=== PATIENT | female | born 1970 | race Caucasian/White ===

== ENCOUNTER 2020-07-29 21:04 | Emergency (ER) | payer BC, OTHER ==
--- NOTE | 2020-07-29 21:44 | EDM.PDOC ---
ED HPI GENERAL MEDICAL PROBLEM - General Chief Complaint: Head Injury Stated Complaint: FELL ON ICE, HEAD BLEEDING Time Seen by Provider: 07/29/20 21:44 Source of Information: Reports: Patient, RN, RN Notes Reviewed History Limitations: Reports: No Limitations - History of Present Illness INITIAL COMMENTS - FREE TEXT/NARRATIVE: Patient is a 49-year-old female who presents to ER with complaints of slipping on the ice and hitting her head on the deck causing laceration and lump to the back of her head. Patient denies being knocked out. States she is unsure of her tetanus vaccination, will follow up with [facility] tomorrow. Patient states that she does not have a headache at this time. 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 ED EXAM, HEAD INJURY - Physical Exam Exam: See Below Exam Limited By: No Limitations General Appearance: Alert, WD/WN, No Apparent Distress Head: Normocephalic, Scalp Swelling (Occipital), Scalp Tenderness (Occipital) Nexus Criteria: No: Posterior, Midline Cervical Tenderness, Evidence of Intoxication, Altered Level of Consciousness, Focal Neurological Deficit, Painful Distraction Injuries Eyes: Bilateral Eye: EOMI, Normal Inspection Ears: Normal External Exam, Hearing Grossly Normal Nose: Normal Inspection Throat/Mouth: Normal Inspection, Normal Lips, Normal Teeth, Normal Gums, Normal Oropharynx, Normal Voice, No Airway Compromise Neck: Non-Tender, Full Range of Motion, Normal Alignment, Normal Inspection Respiratory: No Respiratory Distress, Lungs Clear, Normal Breath Sounds, No Accessory Muscle Use, Chest Non-Tender Cardiovascular: Normal Peripheral Pulses, Regular Rate, Rhythm, No Edema, No Gallop, No JVD, No Murmur, No Rub GI/Abdominal Exam: Normal Bowel Sounds, Soft, Non-Tender, No Organomegaly, No Distention, No Abnormal Bruit, No Mass (Female) Exam: Deferred Rectal (Female) Exam: Deferred Back Exam: Full Range of Motion, Normal Inspection, NT Extremities: Normal Inspection, Normal Range of Motion, Non-Tender, No Pedal Edema, Normal Capillary Refill Neurologic: hat model II-XII nml As Tested, No Motor/Sensory Deficits, Alert, Normal Mood/Affect, Oriented x 3 Skin: Normal Color, Warm/Dry, Other (1.5 cm laceration to the occipital portion of the head) - Rohan Coma Score Best Eye Response (Rohan): (4) Open Spontaneously Best Verbal Response (Rohan): (5) Oriented Best Motor Response (Rohan): (6) Obeys Commands Course - Vital Signs Last Recorded V/S: Last Vital Signs Temp 98.4 F 07/29/20 21:28 Pulse 79 07/29/20 21:51 Resp 16 07/29/20 21:28 BP 153/106 H 07/29/20 21:51 Pulse Ox 99 07/29/20 21:28 - Re-Assessments/Exams Free Text/Narrative Re-Assessment/Exam: 07/29/20 22:31 Patient has some hypertension upon arrival to the ER. States blood pressure is usually good. She does take propranolol, more for anxiety. States she took a propranolol this morning. Discussed having the patient take another propranolol tonight when she gets home. Departure - Departure Time of Disposition: 21:59 Disposition: Home, Self-Care 01 Condition: Good Clinical Impression: Laceration Fall Qualifiers: Encounter type: initial encounter Qualified Code(s): W19.XXXA - Unspecified fall, initial encounter Head injury Qualifiers: Encounter type: initial encounter Qualified Code(s): S09.90XA - Unspecified injury of head, initial encounter - Discharge Information *PRESCRIPTION DRUG MONITORING PROGRAM REVIEWED*: No *COPY OF PRESCRIPTION DRUG MONITORING REPORT IN PATIENT SHAI: No Instructions: Post-Concussion Syndrome, [id number], Facial or Scalp Contusion, [id number], Head Injury, Adult, [id number], Laceration Care, Adult, [id number], Sutures, [place], or Adhesive Wound Closure, [id number] Forms: ED Department Discharge Additional Instructions: Monitor for signs of concussion, vomiting, severe headache, uncontrollable crying, unable to arouse Return to the ER with any further problems have oscar removed in 7-10 days Sepsis Event Note (ED) - Evaluation Sepsis Screening Result: No Definite Risk - Focused Exam Vital Signs: Vital Signs Temp Pulse Resp BP Pulse Ox 07/29/20 21:51 79 153/106 H 07/29/20 21:47 171/112 H 07/29/20 21:28 98.4 F 85 16 172/112 H 99
== END 2020-07-29 22:10 | disposition home or self-care (01) ==
LOC: DL.ED 21:04
DX: S01.01XA Laceration without foreign body of scalp, initial encounter (principal); Z88.1 Allergy status to other antibiotic agents; Z88.8 Allergy status to other drugs, medicaments and biological substances; W01.198A Fall on same level from slipping, tripping and stumbling with subsequent striking against other object, initial encounter
CPT/HCPCS: 12001; 99282-25; 99283

== ENCOUNTER 2021-01-04 21:56 | Emergency (ER) | payer OTHER ==
--- NOTE | 2021-01-04 22:16 | EDM.PDOC ---
"ED HPI GENERAL MEDICAL PROBLEM - General Stated Complaint: LEFT SIDE RIB PAIN Time Seen by Provider: 01/04/21 22:00 Source of Information: Reports: Patient History Limitations: Reports: No Limitations - History of Present Illness INITIAL COMMENTS - FREE TEXT/NARRATIVE: This 50 yo female patient reports to the ED with left lateral rib pain and left upper quadrant abdominal pain. The patient reports her symptoms started earlier today and have been getting worse since symptom onset. The patient reports her pain initially started in her left lateral ribs, but has spread to her entire side. The patient reports increased pain with palpation of the ribs and lateral abdomen. Onset: Today Duration: Constant, Getting Worse Location: Reports: Chest (left lower lateral ), Abdomen (left lateral) Quality: Reports: Ache Severity: Moderate Improves with: Reports: None Worsens with: Reports: None Context: Reports: Other Associated Symptoms: Reports: No Other Symptoms - Related Data Allergies Allergy/AdvReac Type Severity Reaction Status Date / Time clindamycin AdvReac Unknown GI upset Verified 01/04/21 22:36 prednisone AdvReac Unknown GI upset Verified 01/04/21 22:36 Home Meds: Home Meds ALPRAZolam [Alprazolam] 0.25 mg PO DAILY PRN 01/10/18 [History] Propranolol HCl [Propranolol] 60 mg PO DAILY 07/29/20 [History] Past Medical History - Past Health History Medical/Surgical History: Denies Medical/Surgical History HEENT History: Reports: Impaired 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 ED ROS GENERAL - Review of Systems Review Of Systems: Comprehensive ROS is negative, except as noted in HPI. ED EXAM, GENERAL - Physical Exam Exam: See Below Exam Limited By: No Limitations General Appearance: Alert, WD/WN, Moderate Distress Eye Exam: Bilateral Eye: EOMI, Normal Inspection, PERRL Ears: Normal External Exam, Normal Canal, Hearing Grossly Normal, Normal TMs Nose: Normal Inspection Throat/Mouth: Normal Inspection, Normal Lips, Normal Teeth, Normal Gums, Normal Oropharynx, Normal Voice, No Airway Compromise Head: Atraumatic, Normocephalic Neck: Normal Inspection, Supple, Non-Tender, Full Range of Motion Respiratory/Chest: No Respiratory Distress, Lungs Clear, Normal Breath Sounds, No Accessory Muscle Use, Other (Tenderness to the left lateral ribs) Cardiovascular: Normal Peripheral Pulses, Regular Rate, Rhythm, No Edema, No Gallop, No JVD, No Murmur, No Rub GI/Abdominal: Normal Bowel Sounds, Soft, Tender (left lateral upper abdomen) (Female) Exam: Deferred Rectal (Female) Exam: Deferred Back Exam: Normal Inspection, Full Range of Motion, NT Extremities: Normal Inspection, Normal Range of Motion, Non-Tender, Normal Capillary Refill, No Pedal Edema Neurological: Alert, Oriented, CN II-XII Intact, Normal Cognition, Normal Gait, Normal Reflexes, No Motor/Sensory Deficits Psychiatric: Normal Affect, Normal Mood Skin Exam: Warm, Dry, Intact, Normal Color, No Rash Lymphatic: No Adenopathy Course - Vital Signs Last Recorded V/S: Last Vital Signs Temp 97.9 F 01/04/21 22:36 Pulse 102 H 01/04/21 22:36 Resp 16 01/04/21 22:36 BP 158/93 H 01/04/21 22:36 Pulse Ox 98 01/04/21 22:36 - Orders/Labs/Meds Orders: Active Orders 24 hr Category Date Time Status CULTURE URINE [RM] Stat Lab 01/04/21 22:38 Received Labs: Laboratory Tests 01/04/21 01/04/21 01/04/21 Range/Units 22:12 22:12 22:12 WBC 6.2 (5.0-10.0) 10^3/uL RBC 4.59 (4.2-5.4) 10^6/uL Hgb 15.3 D (12.0-16.0) g/dL Hct 43.0 (37.0-47.0) % MCV 93.7 D (80-100) fL MCH 33.3 (27.0-34.0) pg MCHC 35.6 H (33.0-35.0) g/dL Plt Count 239 D (150-450) 10^3/uL Neut % (Auto) 51.6 (42.2-75.2) % Lymph % (Auto) 38.4 (20.5-50.1) % Gonzales % (Auto) 7.0 (2-8) % Eos % (Auto) 1.9 (1.0-3.0) % Baso % (Auto) 1.1 H (0.0-1.0) % D-Dimer, Quantitative 405 H (0-400) ng/mL Sodium 135 L (136-145) mmol/L Potassium 3.5 (3.5-5.1) mmol/L Chloride 96 L (98-107) mmol/L Carbon Dioxide 26 (21-32) mmol/L Anion Gap 16.5 H (7-13) mEq/L BUN 7 (7-18) mg/dL Creatinine 0.60 (0.55-1.02) mg/dL Est Cr Clr Drug Dosing 96.91 mL/min Estimated GFR (MDRD) > 60 BUN/Creatinine Ratio 11.7 (No establ ref range) Glucose 106 H (70-99) mg/dL Calcium 9.0 (8.5-10.1) mg/dL Total Bilirubin 0.3 (0.2-1.0) mg/dL AST 84 H (15-37) U/L ALT 98 H (14-59) U/L Alkaline Phosphatase 53 (46-116) U/L Total Protein 8.0 (6.4-8.2) g/dL Albumin 4.3 (3.4-5.0) g/dL Globulin 3.7 Albumin/Globulin Ratio 1.2 Urine Color (YELLOW) Urine Appearance (CLEAR) Urine pH (5.0-9.0) Ur Specific [place] (1.005-1.030) Urine Protein (NEGATIVE) Urine Glucose (UA) (NEGATIVE) Urine Ketones (NEGATIVE) Urine Occult Blood (NEGATIVE) Urine Nitrite (NEGATIVE) Urine Bilirubin (NEGATIVE) Urine Urobilinogen (0.2-1.0) mg/dL Ur Leukocyte Esterase (NEGATIVE) Urine RBC /HPF Urine WBC (0-5/HPF) /HPF Ur Epithelial Cells (NOT SEEN) /HPF Amorphous Sediment (NOT SEEN) /HPF Urine Bacteria (0-FEW/HPF) /HPF Urine Mucus (NOT SEEN) /LPF 01/04/21 Range/Units 22:38 WBC (5.0-10.0) 10^3/uL RBC (4.2-5.4) 10^6/uL Hgb (12.0-16.0) g/dL Hct (37.0-47.0) % MCV (80-100) fL MCH (27.0-34.0) pg MCHC (33.0-35.0) g/dL Plt Count (150-450) 10^3/uL Neut % (Auto) (42.2-75.2) % Lymph % (Auto) (20.5-50.1) % Gonzales % (Auto) (2-8) % Eos % (Auto) (1.0-3.0) % Baso % (Auto) (0.0-1.0) % D-Dimer, Quantitative (0-400) ng/mL Sodium (136-145) mmol/L Potassium (3.5-5.1) mmol/L Chloride (98-107) mmol/L Carbon Dioxide (21-32) mmol/L Anion Gap (7-13) mEq/L BUN (7-18) mg/dL Creatinine (0.55-1.02) mg/dL Est Cr Clr Drug Dosing mL/min Estimated GFR (MDRD) BUN/Creatinine Ratio (No establ ref range) Glucose (70-99) mg/dL Calcium (8.5-10.1) mg/dL Total Bilirubin (0.2-1.0) mg/dL AST (15-37) U/L ALT (14-59) U/L Alkaline Phosphatase (46-116) U/L Total Protein (6.4-8.2) g/dL Albumin (3.4-5.0) g/dL Globulin Albumin/Globulin Ratio Urine Color Yellow (YELLOW) Urine Appearance Slightly cloudy (CLEAR) Urine pH 6.0 (5.0-9.0) Ur Specific [place] 1.010 (1.005-1.030) Urine Protein Negative (NEGATIVE) Urine Glucose (UA) Negative (NEGATIVE) Urine Ketones Negative (NEGATIVE) Urine Occult Blood Trace-intact H (NEGATIVE) Urine Nitrite Negative (NEGATIVE) Urine Bilirubin Negative (NEGATIVE) Urine Urobilinogen 0.2 (0.2-1.0) mg/dL Ur Leukocyte Esterase Small H (NEGATIVE) Urine RBC 5-10 H /HPF Urine WBC 50-75 H (0-5/HPF) /HPF Ur Epithelial Cells Few (NOT SEEN) /HPF Amorphous Sediment Rare (NOT SEEN) /HPF Urine Bacteria Moderate H (0-FEW/HPF) /HPF Urine Mucus Few H (NOT SEEN) /LPF - Radiology Interpretation Free Text/Narrative:: [facility] [place] [facility] Final Radiology Report Call: [phone] assistance Online chat: [email or web address] Name: OSVALDO ELAM Age: 50Years F Date: 01/04/2021 SSN: -- : [id number] Study: CT ABDOMEN PELVIS WO CONT Requesting Physician: Nghia Cote Images: [id number] Addl Studies: Provided Clinical History: Left side pain with hematuria Contrast: Without Contrast Medium: Contrast Amount: Contrast Method: Page 1 of 2 PROCEDURE INFORMATION: Exam: CT Abdomen And Pelvis Without Contrast Exam date and time: 01/04/2021 11:34 PM Age: 50 years old Clinical indication: Left side pain with hematuria TECHNIQUE: Imaging protocol: Computed tomography of the abdomen and pelvis without contrast. Coronal and sagittal reformatted images are submitted. Radiation optimization: All CT scans at this facility use at least one of these dose optimization techniques: automated exposure control; mA and/or kV adjustment per patient size (includes targeted exams where dose is matched to clinical indication); or iterative reconstructi on. COMPARISON: No prior study is available for comparison at the time of this interpretation. FINDINGS: The study is limited by the lack of IV contrast. Visualized portions of the thoracic base demonstrate an old burst fracture deformity of the T11 vertebral body, with an associated superior endplate Schmorl's node, but are otherwise unremarkable. There is surgical absence of the uterus. No urinary calculi or hans urinary tract obstruction on either side, but the urinary bladder is moderately distended and exhibits smoothly irregular margins, possibly neurogenic bladder, although nonspecific, with associated mild prominence of the ureters and renal pelves bilaterally. No intestinal obstruction, but there is mild left-sided mesenteric fat stranding, which is nonspecific but could be related to mild enteritis. There is diffuse hepatic steatosis. There is atrophy and subtotal fatty replacement of the inferior lumbar paraspinal musculature. There is bilateral L5 spondylolysis. The noncontrasted abdominal and pelvic organs, vascular and intestinal structures, osseous, muscular, and soft tissue structures are otherwise unremarkable. OSVALDO ELAM | Final Radiology Report CONFIDENTIALITY STATEMENT This report is intended only for use by the referring physician, and only in accordance with law. If you received this in error, call [phone]. Page 2 of 2 The appendix is normal. No abdominopelvic abscess, free fluid or air, soft tissue mass, or lymphadenopathy. IMPRESSION: --No urinary calculi or hans urinary tract obstruction on either side, but the urinary bladder is moderately distended and exhibits smoothly irregular margins, possibly neurogenic bladder, although nonspecific, with associated mild prominence of the ureters and renal pelves bilaterally. --No intestinal obstruction, but there is mild left-sided mesenteric fat stranding, which is nonspecific but could be related to mild enteritis. --Chronic findings are described above. Thank you for allowing us to participate in the care of your patient. Dictated and Authenticated by: Mook Paulino MD 01/05/2021 1:15 AM Central Time ([place] & [place]) Departure - Departure Time of Disposition: 01:26 Disposition: Home, Self-Care 01 Condition: Fair Clinical Impression: Left lateral abdominal pain, Enteritis - Discharge Information *PRESCRIPTION DRUG MONITORING PROGRAM REVIEWED*: Not Applicable *COPY OF PRESCRIPTION DRUG MONITORING REPORT IN PATIENT SHAI: Not Applicable Instructions: Abdominal Pain, Adult, Dbbh-of-Irgl Care Plan Goals: The patient was advised of the examination, lab and CT results during the visit. The patient was offered pain medication, but she would prefer to take over the counter medications. If the patient has any additional symptoms or concerns, the patient should either return to the emergency department or visit her primary care facility. Sepsis Event Note (ED) - Focused Exam Vital Signs: Vital Signs Temp Pulse Resp BP Pulse Ox 01/04/21 22:36 97.9 F 102 H 16 158/93 H 98 - My Orders Last 24 Hours: My Active Orders 01/04/21 22:38 CULTURE URINE [RM] Stat - Assessment/Plan Last 24 Hours: My Active Orders 01/04/21 22:38 CULTURE URINE [RM] Stat"
[2021-01-04 22:35] LABS: ANION GAP 16.5 mEq/L (7-13); CHLORIDE,CL 96 mmol/L (98-107); SODIUM,NA 135 mmol/L (136-145)
--- NOTE | 2021-01-05 01:16 | CT ---
PROCEDURE INFORMATION: Exam: CT Abdomen And Pelvis Without Contrast Exam date and time: 01/04/2021 11:34 PM Age: 50 years old Clinical indication: Left side pain with hematuria TECHNIQUE: Imaging protocol: Computed tomography of the abdomen and pelvis without contrast. Coronal and sagittal reformatted images are submitted. Radiation optimization: All CT scans at this facility use at least one of these dose optimization techniques: automated exposure control; mA and/or kV adjustment per patient size (includes targeted exams where dose is matched to clinical indication); or iterative reconstruction. COMPARISON: No prior study is available for comparison at the time of this interpretation. FINDINGS: The study is limited by the lack of IV contrast. Visualized portions of the thoracic base demonstrate an old burst fracture deformity of the T11 vertebral body, with an associated superior endplate Schmorl's node, but are otherwise unremarkable. There is surgical absence of the uterus. No urinary calculi or hans urinary tract obstruction on either side, but the urinary bladder is moderately distended and exhibits smoothly irregular margins, possibly neurogenic bladder, although nonspecific, with associated mild prominence of the ureters and renal pelves bilaterally. No intestinal obstruction, but there is mild left-sided mesenteric fat stranding, which is nonspecific but could be related to mild enteritis. There is diffuse hepatic steatosis. There is atrophy and subtotal fatty replacement of the inferior lumbar paraspinal musculature. There is bilateral L5 spondylolysis. The noncontrasted abdominal and pelvic organs, vascular and intestinal structures, osseous, muscular, and soft tissue structures are otherwise unremarkable. The appendix is normal. No abdominopelvic abscess, free fluid or air, soft tissue mass, or lymphadenopathy. IMPRESSION: --No urinary calculi or hans urinary tract obstruction on either side, but the urinary bladder is moderately distended and exhibits smoothly irregular margins, possibly neurogenic bladder, although nonspecific, with associated mild prominence of the ureters and renal pelves bilaterally. --No intestinal obstruction, but there is mild left-sided mesenteric fat stranding, which is nonspecific but could be related to mild enteritis. --Chronic findings are described above.
== END 2021-01-05 01:53 | disposition home or self-care (01) ==
LOC: DL.ED 21:56
DX: K52.9 Noninfective gastroenteritis and colitis, unspecified (principal); Z88.1 Allergy status to other antibiotic agents; Z88.8 Allergy status to other drugs, medicaments and biological substances
CPT/HCPCS: 36415; 74176; 80053; 81001; 85025; 85379; 87086; 87088; 87186; 99283; 99284-25